=== PATIENT | female | born 1935 | race Caucasian/White ===

== ENCOUNTER 2018-10-13 17:08 | Emergency (ER) | payer MEDICARE ==
[2018-10-13 17:36] LABS: #Eosinphils 0.1 thou/uL (0.0-0.7); #Lymphocytes 1.8 thou/uL (1.20-3.40); #Monocytes 0.8 thou/uL (0.11-0.59); #Neutrophils 5.7 thou/uL (1.40-6.50); %Basophils 0.2 % (0.0-1.0); %Eosinophils 1.4 % (0.0-10.0); %Lymphocytes 21.5 % (21.0-51.0); %Monocytes 9.3 % (0.0-10.0); %Neutrophils 67.7 % (42.0-75.0); Hemoglobin 13.7 g/dL (12.0-16.0); Mean Corpuscular HGB CONC 34.5 g/dL (32.0-36.0); Mean Corpuscular Hemoglobin 31.2 pg (27.0-31.0); Mean Corpuscular Volume 90.4 fL (78.0-98.0); Mean Platelet Volume 6.6 fL (7.4-10.4); Platelet Count 242 thou/uL (130-400); RBC Distribution Width 10.8 % (11.5-14.5); Red Blood Cell (RBC) Count 4.39 mill/uL (4.20-5.40); White Blood Cell (WBC) Count 8.5 thou/uL (4.8-10.8)
[2018-10-13 17:59] LABS: ALT (SGPT) 29 U/L (8-55); AST (SGOT) 28 U/L (5-34); Albumin 3.8 g/dL (3.4-4.8); Alkaline Phosphatase 56 U/L (40-150); Anion Gap 11 mmol/L (10-20); BUN (Urea Nitrogen) 7 mg/dL (9.8-20.1); Bilirubin, Total 0.5 mg/dL (0.2-1.2); Calc. Creatinine Clearance 0 mL/min (70-130); Calcium 8.6 mg/dL (7.8-10.44); Carbon Dioxide 28 mmol/L (23-31); Chloride 93 mmol/L (98-107); Estimated GFR-MDRD 88; Glucose 93 mg/dL (83-110); Lipase 22 U/L (8-78); Potassium 3.3 mmol/L (3.5-5.1); Protein, Total 6.8 g/dL (6.0-8.3); Sodium 129 mmol/L (136-145)
[2018-10-13] MEDS ORDERED: Potassium Chloride 20 MEQ TAB ONE (19:12)
== END 2018-10-13 21:04 | disposition home or self-care (01) ==
LOC: ERS 17:08
DX: E87.6 Hypokalemia (principal); E87.1 Hypo-osmolality and hyponatremia; I10 Essential (primary) hypertension; F32.9 Major depressive disorder, single episode, unspecified; Z79.899 Other long term (current) drug therapy
CPT/HCPCS: 36415; 80053; 83690; 85025; 96360

== ENCOUNTER 2022-03-29 05:27 | Emergency (ER) | payer MEDICARE ==
[2022-03-29] MEDS ORDERED: cefTRIAXone\\ROCEPHIN 1 GM VIAL ONE (05:59)
[2022-03-29 06:13] LABS: #Eosinphils 0.1 thou/uL (0.0-0.7); #Monocytes 0.8 thou/uL (0.11-0.59); #Neutrophils 6.5 thou/uL (1.40-6.50); %Basophils 0.5 % (0.0-1.0); %Eosinophils 1.4 % (0.0-10.0); %Lymphocytes 21.1 % (21.0-51.0); %Monocytes 8.3 % (0.0-10.0); %Neutrophils 68.8 % (42.0-75.0); Hemoglobin 13.9 g/dL (12.0-16.0); Mean Corpuscular HGB CONC 33.4 g/dL (32.0-36.0); Mean Corpuscular Hemoglobin 30.9 pg (27.0-31.0); Mean Corpuscular Volume 92.3 fL (78.0-98.0); Mean Platelet Volume 6.1 fL (7.4-10.4); Platelet Count 339 thou/uL (130-400); Red Blood Cell (RBC) Count 4.49 mill/uL (4.20-5.40); White Blood Cell (WBC) Count 9.4 thou/uL (4.8-10.8)
[2022-03-29 06:36] LABS: ALT (SGPT) 36 U/L (8-55); AST (SGOT) 38 U/L (5-34); Albumin 4.2 g/dL (3.4-4.8); Alkaline Phosphatase 53 U/L (40-110); Anion Gap 17 mmol/L (10-20); BUN (Urea Nitrogen) 15 mg/dL (9.8-20.1); Bilirubin, Total 0.6 mg/dL (0.2-1.2); Calc. Creatinine Clearance 0 mL/min (70-130); Calcium 9.7 mg/dL (7.8-10.44); Carbon Dioxide 29 mmol/L (23-31); Chloride 85 mmol/L (98-107); Estimated GFR 70; Globulin 3.9 g/dL (2.4-3.5); Glucose 123 mg/dL (83-110); Potassium 3.2 mmol/L (3.5-5.1); Protein, Total 8.1 g/dL (5.8-8.1); Sodium 128 mmol/L (136-145)
== END 2022-03-29 06:57 ==
LOC: ERS 05:27
DX: N30.01 Acute cystitis with hematuria (principal); E87.1 Hypo-osmolality and hyponatremia; Z79.899 Other long term (current) drug therapy; Z79.82 Long term (current) use of aspirin
CPT/HCPCS: 80053; 85025; 96365; J0696

== ENCOUNTER 2022-04-03 19:59 | Emergency (ER) | payer MEDICARE ==
[2022-04-03 21:17] LABS: #Eosinphils 0.3 thou/uL (0.0-0.7); #Lymphocytes 1.6 thou/uL (1.20-3.40); #Monocytes 1.2 thou/uL (0.11-0.59); #Neutrophils 6.6 thou/uL (1.40-6.50); %Basophils 0.3 % (0.0-1.0); %Lymphocytes 16.5 % (21.0-51.0); %Monocytes 12.7 % (0.0-10.0); %Neutrophils 67.5 % (42.0-75.0); Mean Corpuscular Hemoglobin 31.5 pg (27.0-31.0); Mean Corpuscular Volume 92.8 fL (78.0-98.0); Mean Platelet Volume 6.2 fL (7.4-10.4); Platelet Count 331 thou/uL (130-400); Red Blood Cell (RBC) Count 4.13 mill/uL (4.20-5.40); White Blood Cell (WBC) Count 9.8 thou/uL (4.8-10.8)
[2022-04-03 22:43] LABS: Albumin 3.9 g/dL (3.4-4.8)
[2022-04-03 22:44] LABS: Chloride 87 mmol/L (98-107); Potassium 3.3 mmol/L (3.5-5.1); Sodium 128 mmol/L (136-145)
[2022-04-03 22:45] LABS: Glucose 130 mg/dL (83-110)
[2022-04-03 22:46] LABS: Globulin 3.8 g/dL (2.4-3.5); Protein, Total 7.7 g/dL (5.8-8.1)
[2022-04-03 22:47] LABS: Anion Gap 15 mmol/L (10-20); Bilirubin, Total 0.7 mg/dL (0.2-1.2); Carbon Dioxide 29 mmol/L (23-31)
[2022-04-03 22:48] LABS: Alkaline Phosphatase 95 U/L (40-110)
[2022-04-03 22:49] LABS: Calc. Creatinine Clearance 0 mL/min (70-130); Estimated GFR 59
[2022-04-03 22:50] LABS: BUN (Urea Nitrogen) 18 mg/dL (9.8-20.1)
[2022-04-03 22:51] LABS: ALT (SGPT) 170 U/L (8-55); AST (SGOT) 86 U/L (5-34)
[2022-04-03 23:11] LABS: Bilirubin Negative (Negative); Blood, Urine Negative (Negative); Clarity Clear (Clear); Glucose, Urine (Dipstick) Normal (Negative); Ketone, Urine Negative (Negative); Leukocyte Negative Leu/uL (Negative); Nitrite Negative (Negative); Protein, Urine (Dipstick) 20 mg/dL (Neg-Trace); Specific Gravity, Urine 1.016 (1.002-1.036); Urobilinogen Normal mg/dL (Less than 2)
== END 2022-04-04 01:02 | disposition home or self-care (01) ==
LOC: ERS 19:59
DX: F03.90 Unspecified dementia, unspecified severity, without behavioral disturbance, psychotic disturbance, mood disturbance, and anxiety (principal); R41.82 Altered mental status, unspecified; I10 Essential (primary) hypertension
CPT/HCPCS: 51701; 71045; 80053; 81003; 85025; 93005

== ENCOUNTER 2024-03-29 00:13 | Inpatient (IN) | payer MEDICARE ==
[2024-03-29 01:18] LABS: #Basophils 0.04 10x3/uL (0.0-0.2); %Basophils 0.7 % (0.0-1.0); %Eosinophils 2.5 % (0.0-10.0); %Lymphocytes 41.3 % (21.0-51.0); %Monocytes 9.8 % (0.0-10.0); %Neutrophils 45.5 % (42.0-75.0); Hematocrit 36.6 % (36.0-47.0); Hemoglobin 13.3 g/dL (12.0-16.0); Mean Corpuscular HGB CONC 36.3 g/dL (32.0-36.0); Mean Corpuscular Volume 85.3 fL (78.0-98.0); Mean Platelet Volume 9.3 fL (7.4-10.4); Platelet Count 197 10x3/uL (130-400); RBC Distribution Width 11.6 % (11.5-14.5); Red Blood Cell (RBC) Count 4.29 mill/uL (4.20-5.40)
[2024-03-29 01:33] LABS: PTT 32.2 sec (22.9-36.1); Prothrombin Time 13.5 sec (12.0-14.7)
[2024-03-29 01:47] LABS: Bacteria/HPF None Seen HPF (None Seen); Bilirubin Negative (Negative); Blood, Urine Negative (Negative); CAUTI Indications for Culture Alt mental st,lethar; Clarity Clear (Clear); Glucose, Urine (Dipstick) Normal (Negative); Ketone, Urine Negative (Negative); Leukocyte Negative Leu/uL (Negative); Nitrite Negative (Negative); Protein, Urine (Dipstick) Negative (Neg-Trace); RBC/HPF 0-3 HPF (0-3); Specific Gravity, Urine 1.011 (1.002-1.036); Squamous Epithelial None Seen HPF (0-3); Urobilinogen Normal mg/dL (Less than 2); WBC/HPF 0-3 HPF (0-3)
[2024-03-29 01:48] LABS: ALT (SGPT) 14 U/L (8-55); AST (SGOT) 20 U/L (5-34); Alkaline Phosphatase 48 U/L (40-110); Anion Gap 12 mmol/L (10-20); BUN (Urea Nitrogen) 15 mg/dL (9.8-20.1); Bilirubin, Total 0.4 mg/dL (0.2-1.2); Calc. Creatinine Clearance 0 mL/min (70-130); Calcium 9.5 mg/dL (7.8-10.44); Carbon Dioxide 25 mmol/L (23-31); Chloride 91 mmol/L (98-107); Estimated GFR 83; Globulin 3.4 g/dL (2.4-3.5); Glucose 101 mg/dL (83-110); Magnesium 1.9 mg/dL (1.6-2.6); Potassium 3.4 mmol/L (3.5-5.1); Protein, Total 7.4 g/dL (5.8-8.1); Sodium 125 mmol/L (136-145)
[2024-03-29 01:52] LABS: Urine Culture Reflex No No
[2024-03-29 01:52] LABS: Troponin I Less than 0.010 ng/mL (< 0.028)
[2024-03-29] MEDS ORDERED: Ondansetron PF 4 MG/2 ML Vial IVP PRN (09:46)
[2024-03-29] MEDS ORDERED: hydrALAZINE 20 MG/ML VIAL SLOW IVP PRN (09:46)
[2024-03-29] MEDS ORDERED: Senokot S 8.6-50 MG TAB PO PRN (09:46)
[2024-03-29] MEDS ORDERED: Acetaminophen 325 MG TAB PO PRN (09:46)
[2024-03-29] MEDS ORDERED: Ondansetron ODT 4 MG TAB PO PRN (09:46)
[2024-03-29 09:52] VITALS: BMI 16.4
[2024-03-29] MEDS: Potassium Chloride 20 MEQ TAB PO SCH (10:50)
[2024-03-29] MEDS: Sodium Chloride 0.9% 1,000 ML IV SCH (10:52)
[2024-03-29] MEDS: levETIRAcetam 500 MG TAB PO SCH ×2 (10:56→20:24)
[2024-03-29] MEDS ORDERED: Iopamidol 370 76% 100 ML VIAL ONE (12:10)
[2024-03-29 15:54] LABS: Anion Gap 12 mmol/L (10-20); BUN (Urea Nitrogen) 9 mg/dL (9.8-20.1); Calc. Creatinine Clearance 44 mL/min (70-130); Calcium 9.1 mg/dL (7.8-10.44); Carbon Dioxide 29 mmol/L (23-31); Chloride 93 mmol/L (98-107); Estimated GFR 83; Glucose 113 mg/dL (83-110); Potassium 3.9 mmol/L (3.5-5.1); Sodium 130 mmol/L (136-145)
[2024-03-29] MEDS: carBAMazepine 200 MG TAB PO SCH (20:24)
[2024-03-29] MEDS: Trospium 20 MG TAB PO SCH (20:24)
[2024-03-29] MEDS: Atorvastatin Calcium 40 MG TAB PO SCH (20:25)
[2024-03-29] MEDS: Docusate 100 MG CAP PO SCH (20:25)
[2024-03-29] MEDS: Amlodipine 5 MG TAB PO SCH (20:25)
[2024-03-30 04:03] LABS: #Basophils 0.04 10x3/uL (0.0-0.2); %Basophils 0.4 % (0.0-1.0); %Eosinophils 1.3 % (0.0-10.0); %Lymphocytes 29.3 % (21.0-51.0); %Monocytes 7.2 % (0.0-10.0); %Neutrophils 61.6 % (42.0-75.0); Hematocrit 36.2 % (36.0-47.0); Hemoglobin 12.7 g/dL (12.0-16.0); Mean Corpuscular HGB CONC 35.1 g/dL (32.0-36.0); Mean Corpuscular Hemoglobin 30.9 pg (27.0-31.0); Mean Corpuscular Volume 88.1 fL (78.0-98.0); Mean Platelet Volume 9.2 fL (7.4-10.4); Platelet Count 204 10x3/uL (130-400); RBC Distribution Width 11.7 % (11.5-14.5); Red Blood Cell (RBC) Count 4.11 mill/uL (4.20-5.40)
[2024-03-30 04:30] LABS: Anion Gap 12 mmol/L (10-20); BUN (Urea Nitrogen) 8 mg/dL (9.8-20.1); Calc. Creatinine Clearance 52 mL/min (70-130); Calcium 8.7 mg/dL (7.8-10.44); Carbon Dioxide 22 mmol/L (23-31); Chloride 98 mmol/L (98-107); Estimated GFR 86; Glucose 93 mg/dL (83-110); Potassium 3.5 mmol/L (3.5-5.1); Sodium 128 mmol/L (136-145)
[2024-03-30] MEDS: Sodium Chloride 1 GM TAB PO SCH (10:13)
[2024-03-30] MEDS: FLUoxetine HCl 20 MG CAP PO SCH (10:13)
[2024-03-30] MEDS: Aspirin Chewable 81 MG TAB PO SCH (10:13)
[2024-03-30] MEDS: Famotidine 20 MG TAB PO SCH (10:13)
[2024-03-30] MEDS: Polyethylene Glycol 3350 17 GM Packet PO SCH (10:14)
[2024-03-30 10:26] VITALS: BMI 16.4
[2024-03-31 11:13] LABS: Anion Gap 12 mmol/L (10-20); BUN (Urea Nitrogen) 8 mg/dL (9.8-20.1); Calc. Creatinine Clearance 50 mL/min (70-130); Carbon Dioxide 25 mmol/L (23-31); Chloride 98 mmol/L (98-107); Estimated GFR 85; Glucose 123 mg/dL (83-110); Potassium 3.5 mmol/L (3.5-5.1); Sodium 131 mmol/L (136-145)
[2024-04-01 04:22] LABS: Anion Gap 13 mmol/L (10-20); BUN (Urea Nitrogen) 13 mg/dL (9.8-20.1); Calc. Creatinine Clearance 49 mL/min (70-130); Calcium 8.7 mg/dL (7.8-10.44); Carbon Dioxide 22 mmol/L (23-31); Chloride 98 mmol/L (98-107); Estimated GFR 85; Glucose 100 mg/dL (83-110); Potassium 3.8 mmol/L (3.5-5.1); Sodium 129 mmol/L (136-145)
[2024-04-01 13:13] VITALS: TEMP 98.1
[2024-04-01 16:16] VITALS: BP 166/70
== END 2024-04-01 15:54 | disposition home or self-care (01) | DRG 640 ==
LOC: ERS 00:13 → ERHOLD 06:16 → T4-A 08:58 → 2SE 15:17 → OBSVTOIN 03-31 09:08
PROVIDERS: ADMIT Student in an Organized Health Care Education/Training Program; ATTEND Family Medicine
DX: E87.1 Hypo-osmolality and hyponatremia (principal); G93.41 Metabolic encephalopathy; N39.0 Urinary tract infection, site not specified; I10 Essential (primary) hypertension; M54.9 Dorsalgia, unspecified; G89.29 Other chronic pain; R29.6 Repeated falls; F41.8 Other specified anxiety disorders; G40.909 Epilepsy, unspecified, not intractable, without status epilepticus; M81.0 Age-related osteoporosis without current pathological fracture; Z96.643 Presence of artificial hip joint, bilateral; Z88.1 Allergy status to other antibiotic agents; Z88.8 Allergy status to other drugs, medicaments and biological substances; Z98.890 Other specified postprocedural states
CPT/HCPCS: 36415; 36416; 70450; 70551; 71045; 72170; 74177; 80048; 80053; 81001; 83735; 83880; 84443; 84484; 85025; 85610; 85730; 93005; J7050; Q9967